=== PATIENT | male | born 1970 | race Two or more races ===

== ENCOUNTER 2020-04-28 19:53 | Emergency (ER) | payer OTHER ==
[2020-04-28] MEDS ORDERED: BAMLANIVIMAB 700 MG, ETESEVIMAB 1,400 MG in SODIUM CHLORIDE 250 ML IVPB ONE (20:05)
[2020-04-28 20:29] LABS: BASO % 0.4 % (0-2.0); EOS % 1.3 % (0-4.5); HEMOGLOBIN 15.8 GM/dL (11.7-16.9); LYMPH % 24.6 % (8-40); MCH 29.2 pg (25.7-33.7); MCHC 33.6 g/dl (32.0-35.9); MEAN CELL VOLUME 86.9 fl (80-96); MONO % 13.5 % (3.8-10.2); NEUT % 60.2 % (42.8-82.8); PLATELET COUNT 165 K/MM3 (134-434); RDW 13.3 % (11.9-15.9); WHITE BLOOD COUNT 3.7 K/mm3 (4.0-10.0)
[2020-04-28 20:32] VITALS: BMI 29.8
[2020-04-28 20:57] LABS: POTASSIUM 3.8 mmol/L (3.5-5.1)
[2020-04-28 20:58] LABS: CALCIUM 8.8 mg/dL (8.5-10.1)
[2020-04-28 20:59] LABS: BLOOD UREA NITROGEN 9.7 mg/dL (7-18)
[2020-04-28 21:02] LABS: CREATININE 1.3 mg/dL (0.55-1.3)
[2020-04-28 22:58] VITALS: BP 116/78; PULSE 88; TEMP 98.6
== END 2020-04-28 22:58 | disposition home or self-care (01) ==
LOC: JER 19:53 → JCOVINFU 19:53
DX: U07.1 COVID-19 (principal)
CPT/HCPCS: 36415; 80048; 85025; 99284-25; M0239; Q0239; Q0245